=== PATIENT | female | born 1945 | race Caucasian/White ===

== ENCOUNTER → 2017-06-30 | Outpatient (CLI) | payer OTHER, MEDICARE ==
[~2017-06-30] MED LIST: ASPI81TA28 PO; CIPR-255 PO; CYAN1LOZ PO; FSMD/70 PO; LEVO25TA PO; LEVO50TA PO; MULT-506 PO; PRAV20TA PO; PRLSR20 PO
[2017-06-30 12:29] LABS: HEMATOCRIT 42.6 % (37-47); HEMOGLOBIN 13.9 g/dL (12.0-16.0); MEAN CELL VOLUME 90.6 fL (80-100); MEAN CORPUSCULAR HEMOGLOBIN 29.6 pg (25-34); MEAN CORPUSCULAR HGB CONC 32.6 g/dl (32-36); MEAN PLATELET VOLUME 10.2 fL (7.4-10.4); PLATELET COUNT 247 K/uL (130-400); RED CELL DISTRIBUTION WIDTH CV 13.6 % (11.5-14.5); RED CELL DISTRIBUTION WIDTH SD 44.5 fL (36.4-46.3); WHITE BLOOD COUNT 7.37 K/uL (4.8-10.8)
[2017-06-30 13:02] LABS: BASO % 0.4 %; BASO ABS # 0.03 K/uL (0-0.2); EOS % 2.2 %; EOS ABS # 0.16 K/uL (0-0.5); IG# 0.02 K/uL (0.00-0.02); LYMPH % 53.5 %; LYMPH ABS # 3.94 K/uL (1.2-3.4); MONO % 8.8 %; MONO ABS # 0.65 K/uL (0.11-0.59); NEUT % 34.8 %; NEUT ABS # 2.57 K/uL (1.4-6.5)
[2017-06-30 13:12] LABS: ALBUMIN 3.7 gm/dl (3.4-5.0); ALT/SGPT 31 U/L (12-78); AST/SGOT 21 U/L (15-37); BLOOD UREA NITROGEN 25 mg/dl (7-18); CALCIUM 8.4 mg/dl (8.5-10.1); CARBON DIOXIDE 29 mmol/L (21-32); CREATININE 0.89 mg/dl (0.60-1.20); GLUCOSE 91 mg/dl (70-99); SODIUM 140 mmol/L (136-145)
[2017-06-30 13:22] LABS: ALKALINE PHOSPHATASE 49 U/L (45-117); CHOLESTEROL 238 mg/dl (0-200); LDL CHOLESTEROL CALCULATED 152 mg/dl; TOTAL PROTEIN 7.4 gm/dl (6.4-8.2)
== END | disposition home or self-care (01) ==
LOC: C.LABMFLN 08:55
PROVIDERS: ATTEND Family Medicine
DX: I10 Essential (primary) hypertension (principal); M81.0 Age-related osteoporosis without current pathological fracture; K21.9 Gastro-esophageal reflux disease without esophagitis; E03.8 Other specified hypothyroidism

== ENCOUNTER → 2017-09-23 | Outpatient (CLI) | payer OTHER, MEDICARE ==
[2017-09-23 13:15] LABS: ALBUMIN 3.9 gm/dl (3.4-5.0); ALKALINE PHOSPHATASE 39 U/L (45-117); ALT/SGPT 40 U/L (12-78); AST/SGOT 30 U/L (15-37); BLOOD UREA NITROGEN 22 mg/dl (7-18); CALCIUM 8.9 mg/dl (8.5-10.1); CARBON DIOXIDE 29 mmol/L (21-32); CHOLESTEROL 215 mg/dl (0-200); CREATININE 1.13 mg/dl (0.60-1.20); GLUCOSE 85 mg/dl (70-99); LDL CHOLESTEROL CALCULATED 130 mg/dl; POTASSIUM 4.1 mmol/L (3.5-5.1); SODIUM 140 mmol/L (136-145); TOTAL PROTEIN 7.6 gm/dl (6.4-8.2)
== END | disposition home or self-care (01) ==
LOC: C.LABMFLN 09:00
PROVIDERS: ATTEND Family Medicine
DX: E78.5 Hyperlipidemia, unspecified (principal); E55.9 Vitamin D deficiency, unspecified

== ENCOUNTER 2022-07-21 16:49 | Observation (INO) ==
[2022-07-21] MEDS ORDERED: METOPROLOL TARTRATE 1 MG/ML VIAL IV STA ×2 (17:09→18:14)
[2022-07-21 17:51] LABS: Basophils # (auto) 0.04 K/uL (0-0.2); Basophils % (auto) 0.4 %; Eosinophils % (auto) 1.8 %; Hematocrit (blood only) 45.2 % (37.0-47.0); Hemoglobin 15.2 g/dl (12.0-16.0); Immature Granulocytes # (auto) 0.02 K/uL (0.01-0.20); Immature Granulocytes % (auto) 0.2 %; Lymphocytes # (auto) 4.82 K/uL (1.2-3.4); Lymphocytes % (auto) 44.4 %; Mean Corpuscular Hemoglobin 30.4 pg (25.0-34.0); Mean Corpuscular Hgb Conc 33.6 g/dL (32.0-36.0); Mean Corpuscular Volume 90.4 fL (80.0-100.0); Mean Platelet Volume 10.8 fL (9.4-12.4); Monocytes # (auto) 1.14 K/uL (0.11-0.59); Monocytes % (auto) 10.5 %; Neutrophils # (auto) 4.63 K/uL (1.40-6.50); Neutrophils % (auto) 42.7 %; Platelet Count 259 K/uL (130-400); RDW Coefficient of Variation 13.5 % (11.5-14.5); RDW Standard Deviation 45.2 fL (36.4-46.3); White Blood Count 10.85 K/ul (4.8-10.8)
[2022-07-21 18:03] LABS: Albumin Globulin Ratio 1.4 (0.9-2); Albumin Level 4.3 gm/dl (3.4-5.0); BUN Creatinine Ratio 28.6 (10-20); Bilirubin,Total 0.5 mg/dl (0.2-1.0); Calcium 9.5 mg/dl (8.6-10.3); Est GFR (African American) 77.7 ml/min; Globulin 3.1 gm/dl (2.5-4.0); Magnesium 2.1 mg/dl (1.7-2.4); Potassium 4.1 mmol/L (3.5-5.1); Total Protein 7.4 gm/dl (6.0-8.3)
[2022-07-21 18:06] LABS: Troponin I High Sensitivity 12.8 pg/ml (0-14)
[2022-07-21 18:08] LABS: Appearance Urine Clear (Clear); Bacteria Urine Automated Negative (Negative); Bilirubin Urine Negative (Negative); Blood Urine 1+ (Negative); Cast Urine Automated 0 /lpf (0-5); Color Urine Yellow; Epithelial Cell Urine Auto 0-5 /lpf (0-5); Glucose Urine UA Negative (Negative); Ketones Urine Negative (Negative); Leukocyte Esterase Urine Negative (Negative); Nitrite Urine Negative (Negative); Protein Urine Negative (Negative); RBC Urine Automated 0-4 /hpf (0-4); Specific Gravity Urine 1.017 (1.000-1.030); Urobilinogen Urine Negative (Negative); pH Urine 5.5 (4.5-7.5)
[2022-07-21 18:10] LABS: INR 0.9 (0.9-1.1); Partial Thromboplastin Time 27.1 Seconds (21.0-31.0); Prothrombin Time 10.2 Seconds (9.0-12.0)
[2022-07-21 18:14] LABS: Thyroid Stimulating Hormone 0.208 uIu/ml (0.300-4.500)
[2022-07-21] MEDS ORDERED: dilTIAZem HCl 5 MG/ML 5 ML VIAL IV STA (18:30)
--- NOTE | 2022-07-21 18:31 | XRay Report ---
SINGLE VIEW CHEST CLINICAL HISTORY: Dysrhythmia FINDINGS: An AP, portable, upright chest radiograph is obtained. No prior studies are available for c omparison at the time of dictation. The cardiomediastinal silhouette is unremarkable. The lungs and p leural spaces are clear. No pneumothorax is seen. The skeletal structures are osteopenic. The bony th orax is grossly intact. IMPRESSION: No active disease in the chest. ACT 112: Negative or not required by law. Electronically signed by: Usman Brock M.D. 07/21/2022 6:29 PM
[2022-07-21 18:47] LABS: T4 Free Thyroxine 1.2 ng/dl (0.61-1.60)
--- NOTE | 2022-07-21 21:39 | History & Physical Report ---
Date of Service July 21, 2022 Assessment & Plan (1) Atrial fibrillation: Plan: Atrial Fibrillation with RVR - Converted to NSR with metoprolol/diltiazem and has remained with rates in the 80s - Will monitor of telemetry - TSH low, hyperthyroidism could be a contributing factor - Trop= 12, repeat pending - Echo from 05/2022 with mild concentric LVH, EF= 60-65% - Consult cardiology - Continue Eliquis. She does note Eliquis is very expensive for her. Hypothyroidism - TSH= 0.208 - Will decrease levothyroxine from 75mcg to 50mcg - Will need repeat TSH in 6 weeks HLD - continue rosuvastatin GERD - continue omeprazole (2) Hypothyroidism: (3) Hypercholesterolemia: (4) HTN (hypertension): (5) GERD without esophagitis: History of Present Illness Primary Care Provider: Eduardo Flores DO 77 year old female with a past medical history of atrial fibrillation, anxiety, hypothyroidism, HLD, HTN, GERD presents with palpations. Was admitted at [facility] from 05/24-05/25/2022 with COVID-19 and was having palpitations found to be in a fib with RVR. During that hospitalization she was placed on an amiodarone drip and converted back to NSR. She was started on Eliquis and amiodarone. She did not start taking the amiodarone as she was concerned about the side effects. Is scheduled to see Dr. Merida on 07/31/2022. This afternoon she developed palpitations, states it felt similar to the last time she as in a fib. Denies chest pain, dyspnea, nausea. In the ED was found to be in Afib with RVR. Was given 5mg Metoprolol IVx2 and then Diltiazem. Converted to NSR with a rate in the 80s. ED workup signficant for TSH= 0.2. Trop=12. CXR without acute process. Allergies Allergy/AdvReac Type Severity Reaction Status Date / Time atorvastatin [From Lipitor] Allergy Unknown Verified 07/21/22 19:48 Home Medications Medication Instructions Recorded Confirmed Type cholecalciferol (vitamin D3) 125 5,000 unit PO QAM 03/04/18 07/21/22 History mcg (5,000 unit) tablet (Vitamin D3) lactobacillus combination no.4 3 3,000 mmu cells PO QAM 03/04/18 07/21/22 History billion cell capsule (Probiotic) multivitamin 1 tab PO QAM 03/04/18 07/21/22 History levothyroxine 75 mcg tablet 75 mcg PO QAM #90 tabs 06/25/22 07/21/22 Rx rosuvastatin 10 mg tablet 10 mg PO QPM #90 tabs 06/25/22 07/21/22 Rx apixaban 5 mg tablet 5 mg PO BID #60 tabs 06/29/22 07/21/22 Rx omeprazole 40 mg capsule,delayed 40 mg PO DAILYBB 07/21/22 07/21/22 History release triamcinolone acetonide 0.1 % 1 applic topical BID PRN as desired 07/21/22 07/21/22 History topical cream Past Med/Surg History Medical History Cervical pain (neck) Cough Dermatitis Diverticular disease Elevated liver enzymes Encounter for screening mammogram for breast cancer GERD without esophagitis GI bleed (12/05/13) Hearing deficit HTN (hypertension) Hyperlipidemia Hypothyroidism LBBB (left bundle branch block) Lower GI bleed Lymphadenopathy, cervical Menopause Osteoporosis Situational anxiety Vitamin D deficiency Surgical History H/O excision of mass (04/07/21) History of appendectomy History of cataract surgery History of section History of colonoscopy History of esophagogastroduodenoscopy (EGD) Family History Father Family history of diabetes mellitus Prostate cancer Myocardial infarction Brother Family history of diabetes mellitus Family/Other Hx of CABG Denies family history of Ovarian cancer Breast cancer Colorectal cancer Social History (Updated 04/10/22 @ 08:21 by ELIZABETH Torres) Smoking Status: Never smoker 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 How many Children do You have: 2 Feels Safe at Home: Yes Childhood Exposure to Second-Hand Smoke: Yes (Co-workers) Diet: regular Diet Comment: Regular diet caffeine: Yes (coffee,tea) during the past year weight has: remained stable Dental Care, Regularly: Yes Physical Activity Frequency: Daily Seatbelt Use: always Sunscreen Use: Yes Do you think of yourself as: straight/heterosexual Assistive Devices: Glasses and Hearing Aid - Bilateral Review of Systems 2 Review of Systems: As per above Physical Exam Physical Exam: Constitutional: well-appearing, no acute distress HEENT: NCAT, no conjunctival injection CV: regular rhythm, no murmur appreciated, extremities well-perfused, no LE edema Resp: CTABL, no wheezes/rales/rhonchi appreciated, no increased work of breathing GI: soft, nondistended, nontender MSK: no gross deformities appreciated Skin: warm, dry, no rash appreciated Neuro: alert, oriented, no focal neurologic deficit appreciated Results & Data Results & Data Vital Signs (Past 12 Hours) Vital Signs Temp Pulse Pulse Resp BP BP Pulse Ox 07/21/22 20:30 86 23 128/81 94 07/21/22 20:15 87 22 133/87 96 07/21/22 20:00 113 H 20 117/77 95 07/21/22 19:46 94 H 21 104/81 96 07/21/22 19:30 104 H 24 113/66 94 07/21/22 19:15 99 H 19 112/82 94 07/21/22 19:00 85 28 H 106/66 93 07/21/22 18:45 87 21 103/65 93 07/21/22 18:40 94 H 29 H 97/59 L 95 07/21/22 18:30 127 H 21 117/80 94 07/21/22 18:22 119 H 21 98/79 L 94 07/21/22 18:15 145 H 23 111/88 94 07/21/22 18:00 109/92 95 07/21/22 17:45 98/78 L 94 07/21/22 17:30 121 H 18 118/98 95 07/21/22 17:18 149 H 23 120/90 96 07/21/22 17:03 154 H 27 H 153/107 H 96 07/21/22 17:02 133 H 07/21/22 17:17 133 H 25 H 120/90 96 07/21/22 17:02 144 H 29 H 153/107 H 96 07/21/22 16:53 36.7 C 159 H 20 164/91 H 97 O2 Del Method 07/21/22 20:30 07/21/22 20:15 07/21/22 20:00 07/21/22 19:46 07/21/22 19:30 07/21/22 19:15 07/21/22 19:00 07/21/22 18:45 07/21/22 18:40 Room Air 07/21/22 18:30 Room Air 07/21/22 18:22 Room Air 07/21/22 18:15 Room Air 07/21/22 18:00 Room Air 07/21/22 17:45 Room Air 07/21/22 17:30 Room Air 07/21/22 17:18 Room Air 07/21/22 17:03 Room Air 07/21/22 17:02 07/21/22 17:17 Room Air 07/21/22 17:02 Room Air 07/21/22 16:53 Room Air Resident Activity Tracking Resident Involvement: Resident Care Provided Care Provided: Adult Hospital Medicine
--- NOTE | 2022-07-22 00:30 | Emergency Department Note ---
Impression & Plan Atrial fibrillation with rapid ventricular response ED Provider Note CHIEF COMPLAINT: Tachycardia HISTORY OF PRESENT ILLNESS: This 77-year-old female patient with past medical history of atrial fibrillation on chronic anticoagulation, left bundle branch block, hypertension, hypercholesterolemia, hypothyroidism presents to the emergency department with complaints of heart racing and palpitations. Patient states she was recently admitted to the [facility] last month and discharged on amiodarone. The patient stopped taking the medication about 1 week ago as her pharmacist mentioned that this is a dangerous drug. She did not notify cardiology of stopping the drug. Patient does not take any other rate controlling medications. She denies any recent illnesses, chest pain, shortness of breath currently. Patient states she was previously followed by [facility] cardiology but has an appointment pending with Dr. Magn[facility] and would like to be seen by their service REVIEW OF SYSTEMS: A review of systems was performed with positives and pertinent negatives listed in the history of present illness. 10 systems were reviewed and are otherwise negative. ALLERGIES: see below MEDICATIONS: see below PMH: see below SOCIAL HISTORY: see below DDx:Premature contractions, electrolyte abnormality, cardiac dysrhythmia, thyroid dysfunction, gastrointestinal, as well as other pathologies. PHYSICAL EXAM: Vital signs reviewed. General: Well-appearing 77 yo female, in no significant distress. HEENT: No scleral icterus, PERRLA, neck supple. MMM. Cardiovascular: Tachycardic and irregular. Pulmonary: Clear to auscultation bilaterally, normal work of breathing. Abdomen: Soft, nontender, nondistended, positive bowel sounds. Musculoskeletal: Atraumatic, no peripheral edema. Neurologic: Patient awake alert and oriented x 3, speech is clear Skin: Warm, dry, no rash EMERGENCY DEPARTMENT COURSE/MDM: This patient was evaluated and appeared to be in no significant distress. IV access was obtained and laboratory work was drawn. The patient was placed on the hospital monitor and noted to be in a rapid atrial fibrillation. The patient was medicated with 5 mg of IV metoprolol x2. Patient remained in rapid atrial fibrillation was given 10 mg of IV Cardizem with good result. Patient remained in atrial fibrillation and shortly thereafter became tachycardic once again. Laboratory work is fairly reassuring. I did review my findings with the hospitalist service who agreed to evaluate the patient for admission and further management. Patient did cardiovert without any further intervention. As the patient is currently between cardiolo gy providers and no longer taking her antiarrhythmics and has no rate controlling medications at home, is felt to be in the patient's best interest to be evaluated for admission and further management. Patient agrees with the plan. MONITORING: An order for cardiac monitoring was placed and the patient is noted to be in a rapid atrial fibrillation at 133 beats per minute. RADIOLOGY: Chest x-ray to my interpretation reveals no evidence of focal lung consolidation or failure, otherwise defer to radiology EKG: To my interpretation reveals rapid atrial fibrillation at 145 bpm. Wide- complex. QTc is 479. No previous for comparison. DISPOSITION: Admission I have personally spent 45 minutes of critical care time in the direct management of this patient. This was a life/limb threatening event. This 45 minutes is in excess of all separately billable procedures. Past Med/Surg History Medical History Cervical pain (neck) Cough Dermatitis Diverticular disease Elevated liver enzymes Encounter for screening mammogram for breast cancer GERD without esophagitis GI bleed (12/05/13) Hearing deficit BL MENDOZA HTN (hypertension) Hyperlipidemia Hypothyroidism LBBB (left bundle branch block) Lower GI bleed Lymphadenopathy, cervical Menopause Osteoporosis Situational anxiety Vitamin D deficiency Surgical History H/O excision of mass (04/07/21) Atypical nevus of left lower leg: in office procedure 04/07/21 History of appendectomy History of cataract surgery BILATERAL History of section X 2 History of colonoscopy History of esophagogastroduodenoscopy (EGD) Family History Father Family history of diabetes mellitus Prostate cancer Myocardial infarction Brother Family history of diabetes mellitus Family/Other Hx of CABG Denies family history of Ovarian cancer Breast cancer Colorectal cancer Social History Smoking Status: Never smoker 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 How many Children do You have: 2 Feels Safe at Home: Yes Childhood Exposure to Second-Hand Smoke: Yes (Co-workers) Diet: regular Diet Comment: Regular diet caffeine: Yes (coffee,tea) during the past year weight has: remained stable Dental Care, Regularly: Yes Physical Activity Frequency: Daily Seatbelt Use: always Sunscreen Use: Yes Do you think of yourself as: straight/heterosexual Assistive Devices: Glasses and Hearing Aid - Bilateral Allergies Allergies Allergy/AdvReac Type Severity Reaction Status Date / Time atorvastatin [From Lipitor] Allergy Unknown Verified 07/21/22 19:48 Home Meds Home Medications Medication Instructions Recorded Confirmed cholecalciferol (vitamin D3) 125 5,000 unit PO QAM 03/04/18 07/21/22 mcg (5,000 unit) tablet (Vitamin D3) lactobacillus combination no.4 3 3,000 mmu cells PO QAM 03/04/18 07/21/22 billion cell capsule (Probiotic) multivitamin 1 tab PO QAM 03/04/18 07/21/22 omeprazole 40 mg capsule,delayed 40 mg PO DAILYBB 07/21/22 07/21/22 release triamcinolone acetonide 0.1 % 1 applic topical BID PRN as desired 07/21/22 07/21/22 topical cream Previous Rx's Medication Instructions Recorded levothyroxine 75 mcg tablet 75 mcg PO QAM #90 tabs 06/25/22 rosuvastatin 10 mg tablet 10 mg PO QPM #90 tabs 06/25/22 apixaban 5 mg tablet 5 mg PO BID #60 tabs 06/29/22 Results & Data (ED) Vital Signs Vital Signs - 24 hr 07/21/22 16:53 07/21/22 17:02 07/21/22 17:17 Temperature 36.7 C Temperature Source Temporal Artery Scan Pulse Rate 159 H Pulse Rate [Left Apical] 144 H 133 H Pulse Rate from SpO2 Sensor Pulse Rhythm Regular Pulse Strength Normal Respiratory Rate 20 29 H 25 H Respiratory Effort / Characteristics Non-Labored Spontaneous Respiratory Depth Normal Respiratory Pattern Regular Blood Pressure 164/91 H Blood Pressure [Right Arm] 153/107 H 120/90 Blood Pressure Mean 115 Blood Pressure Mean [Right Arm] 122 100 Blood Pressure Position Sitting Pulse Oximetry 97 96 96 Oxygen Delivery Method Room Air Room Air Room Air Sepsis Recent Fever Within 48 Hours No Sepsis New/Unexplained Change in Mental Status No Sepsis Action Taken by Nursing No Action Required 07/21/22 17:02 07/21/22 17:03 07/21/22 17:18 Temperature Temperature Source Pulse Rate 133 H 154 H 149 H Pulse Rate [Left Apical] Pulse Rate from SpO2 Sensor Pulse Rhythm Pulse Strength Respiratory Rate 27 H 23 Respiratory Effort / Characteristics Respiratory Depth Respiratory Pattern Blood Pressure 153/107 H 120/90 Blood Pressure [Right Arm] Blood Pressure Mean 122 100 Blood Pressure Mean [Right Arm] Blood Pressure Position Pulse Oximetry 96 96 Oxygen Delivery Method Room Air Room Air Sepsis Recent Fever Within 48 Hours Sepsis New/Unexplained Change in Mental Status Sepsis Action Taken by Nursing 07/21/22 17:30 07/21/22 17:45 07/21/22 18:00 Temperature Temperature Source Pulse Rate 121 H Pulse Rate [Left Apical] Pulse Rate from SpO2 Sensor 101 H 134 H Pulse Rhythm Pulse Strength Respiratory Rate 18 Respiratory Effort / Characteristics Respiratory Depth Respiratory Pattern Blood Pressure 118/98 98/78 L 109/92 Blood Pressure [Right Arm] Blood Pressure Mean 104 84 97 Blood Pressure Mean [Right Arm] Blood Pressure Position Pulse Oximetry 95 94 95 Oxygen Delivery Method Room Air Room Air Room Air Sepsis Recent Fever Within 48 Hours Sepsis New/Unexplained Change in Mental Status Sepsis Action Taken by Nursing 07/21/22 18:15 07/21/22 18:22 07/21/22 18:30 Temperature Temperature Source Pulse Rate 145 H 119 H 127 H Pulse Rate [Left Apical] Pulse Rate from SpO2 Sensor Pulse Rhythm Pulse Strength Respiratory Rate 23 21 21 Respiratory Effort / Characteristics Respiratory Depth Respiratory Pattern Blood Pressure 111/88 98/79 L 117/80 Blood Pressure [Right Arm] Blood Pressure Mean 95 85 92 Blood Pressure Mean [Right Arm] Blood Pressure Position Pulse Oximetry 94 94 94 Oxygen Delivery Method Room Air Room Air Room Air Sepsis Recent Fever Within 48 Hours Sepsis New/Unexplained Change in Mental Status Sepsis Action Taken by Nursing 07/21/22 18:40 07/21/22 18:45 07/21/22 19:00 Temperature Temperature Source Pulse Rate 94 H 87 85 Pulse Rate [Left Apical] Pulse Rate from SpO2 Sensor 84 82 Pulse Rhythm Pulse Strength Respiratory Rate 29 H 21 28 H Respiratory Effort / Characteristics Respiratory Depth Respiratory Pattern Blood Pressure 97/59 L 103/65 106/66 Blood Pressure [Right Arm] Blood Pressure Mean 71 77 79 Blood Pressure Mean [Right Arm] Blood Pressure Position Pulse Oximetry 95 93 93 Oxygen Delivery Method Room Air Sepsis Recent Fever Within 48 Hours Sepsis New/Unexplained Change in Mental Status Sepsis Action Taken by Nursing 07/21/22 19:15 07/21/22 19:30 07/21/22 19:46 Temperature Temperature Source Pulse Rate 99 H 104 H 94 H Pulse Rate [Left Apical] Pulse Rate from SpO2 Sensor 84 97 H 88 Pulse Rhythm Pulse Strength Respiratory Rate 19 24 21 Respiratory Effort / Characteristics Respiratory Depth Respiratory Pattern Blood Pressure 112/82 113/66 104/81 Blood Pressure [Right Arm] Blood Pressure Mean 92 81 88 Blood Pressure Mean [Right Arm] Blood Pressure Position Pulse Oximetry 94 94 96 Oxygen Delivery Method Sepsis Recent Fever Within 48 Hours Sepsis New/Unexplained Change in Mental Status Sepsis Action Taken by Nursing 07/21/22 20:00 07/21/22 20:15 07/21/22 20:30 Temperature Temperature Source Pulse Rate 113 H 87 86 Pulse Rate [Left Apical] Pulse Rate from SpO2 Sensor 99 H 85 85 Pulse Rhythm Pulse Strength Respiratory Rate 20 22 23 Respiratory Effort / Characteristics Respiratory Depth Respiratory Pattern Blood Pressure 117/77 133/87 128/81 Blood Pressure [Right Arm] Blood Pressure Mean 90 102 96 Blood Pressure Mean [Right Arm] Blood Pressure Position Pulse Oximetry 95 96 94 Oxygen Delivery Method Sepsis Recent Fever Within 48 Hours Sepsis New/Unexplained Change in Mental Status Sepsis Action Taken by Nursing 07/21/22 21:23 07/21/22 20:45 07/21/22 21:00 Temperature Temperature Source Pulse Rate 84 84 84 Pulse Rate [Left Apical] Pulse Rate from SpO2 Sensor 84 85 Pulse Rhythm Pulse Strength Respiratory Rate 17 24 Respiratory Effort / Characteristics Respiratory Depth Respiratory Pattern Blood Pressure 118/70 141/82 H Blood Pressure [Right Arm] Blood Pressure Mean 86 101 Blood Pressure Mean [Right Arm] Blood Pressure Position Pulse Oximetry 95 94 Oxygen Delivery Method Sepsis Recent Fever Within 48 Hours Sepsis New/Unexplained Change in Mental Status Sepsis Action Taken by Nursing 07/21/22 21:20 Temperature Temperature Source Pulse Rate 84 Pulse Rate [Left Apical] Pulse Rate from SpO2 Sensor 81 Pulse Rhythm Pulse Strength Respiratory Rate 16 Respiratory Effort / Characteristics Respiratory Depth Respiratory Pattern Blood Pressure 138/82 Blood Pressure [Right Arm] Blood Pressure Mean 100 Blood Pressure Mean [Right Arm] Blood Pressure Position Pulse Oximetry 95 Oxygen Delivery Method Sepsis Recent Fever Within 48 Hours Sepsis New/Unexplained Change in Mental Status Sepsis Action Taken by Prison Medications Current Medication List: was personally reviewed by me Laboratory Data Attestation: I reviewed the patient's lab results. 07/21/22 17:04 07/21/22 17:04 Lab Results 07/21/22 07/21/22 07/21/22 Range/Units 17:04 17:04 17:04 WBC 10.85 H (4.8-10.8) K/ul RBC 5.00 (4.20-5.40) M/uL Hgb 15.2 (12.0-16.0) g/dl Hct 45.2 (37.0-47.0) % MCV 90.4 (80.0-100.0) fL MCH 30.4 (25.0-34.0) pg MCHC 33.6 (32.0-36.0) g/dL RDW Std Deviation 45.2 (36.4-46.3) fL RDW Coeff of [place] 13.5 (11.5-14.5) % Plt Count 259 (130-400) K/uL MPV 10.8 (9.4-12.4) fL Immature Gran % (Auto) 0.2 % Neut % (Auto) 42.7 % Lymph % (Auto) 44.4 % [place] % (Auto) 10.5 % Eos % (Auto) 1.8 % Baso % (Auto) 0.4 % Neut # (Auto) 4.63 (1.40-6.50) K/uL Lymph # (Auto) 4.82 H (1.2-3.4) K/uL [place] # (Auto) 1.14 H (0.11-0.59) K/uL Eos # (Auto) 0.20 (0-0.50) K/uL Baso # (Auto) 0.04 (0-0.2) K/uL Immature Gran # (Auto) 0.02 (0.01-0.20) K/uL PT 10.2 (9.0-12.0) Seconds INR 0.9 (0.9-1.1) APTT 27.1 (21.0-31.0) Seconds PTT Ratio 1.0 Sodium 141 (136-145) mmol/L Potassium 4.1 (3.5-5.1) mmol/L Chloride 108 H (98-107) mmol/L Carbon Dioxide 25 (21-32) mmol/L Anion Gap 8 (3-11) BUN 24 H (6-23) mg/dl Creatinine 0.84 (0.6-1.2) mg/dl Est Cr Clr Drug Dosing 53.0 ml/min Est GFR ( Amer) 77.7 ml/min Est GFR (Non-Af Amer) 67.0 ml/min BUN/Creatinine Ratio 28.6 H (10-20) Glucose 117 H (70-99(Fasting)) mg/dl Calcium 9.5 (8.6-10.3) mg/dl Magnesium 2.1 (1.7-2.4) mg/dl Total Bilirubin 0.5 (0.2-1.0) mg/dl AST 44 H (13-39) U/L ALT 54 H (7-52) U/L Alkaline Phosphatase 61 (34-104) U/L Troponin I High Sens 12.8 (0-14) pg/ml Total Protein 7.4 (6.0-8.3) gm/dl Albumin 4.3 (3.4-5.0) gm/dl Globulin 3.1 (2.5-4.0) gm/dl Albumin/Globulin Ratio 1.4 (0.9-2) TSH (0.300-4.500) uIu/ml Free T4 (0.61-1.60) ng/dl Urine Color Urine Appearance (Clear) Urine pH (4.5-7.5) Ur Specific [place] (1.000-1.030) Urine Protein (Negative) Urine Glucose (UA) (Negative) Urine Ketones (Negative) Urine Blood (Negative) Urine Nitrite (Negative) Urine Bilirubin (Negative) Urine Urobilinogen (Negative) Ur Leukocyte Esterase (Negative) Urine WBC (Auto) (0-5) /hpf Urine RBC (Auto) (0-4) /hpf U Hyaline Cast (Auto) (0-5) /lpf U Epithel Cells (Auto) (0-5) /lpf Urine Bacteria (Auto) (Negative) SARS-CoV-2, RNA, NAAT (NEGATIVE) 07/21/22 07/21/22 07/21/22 Range/Units 17:04 17:21 17:25 WBC (4.8-10.8) K/ul RBC (4.20-5.40) M/uL Hgb (12.0-16.0) g/dl Hct (37.0-47.0) % MCV (80.0-100.0) fL MCH (25.0-34.0) pg MCHC (32.0-36.0) g/dL RDW Std Deviation (36.4-46.3) fL RDW Coeff of [place] (11.5-14.5) % Plt Count (130-400) K/uL MPV (9.4-12.4) fL Immature Gran % (Auto) % Neut % (Auto) % Lymph % (Auto) % [place] % (Auto) % Eos % (Auto) % Baso % (Auto) % Neut # (Auto) (1.40-6.50) K/uL Lymph # (Auto) (1.2-3.4) K/uL [place] # (Auto) (0.11-0.59) K/uL Eos # (Auto) (0-0.50) K/uL Baso # (Auto) (0-0.2) K/uL Immature Gran # (Auto) (0.01-0.20) K/uL PT (9.0-12.0) Seconds INR (0.9-1.1) APTT (21.0-31.0) Seconds PTT Ratio Sodium (136-145) mmol/L Potassium (3.5-5.1) mmol/L Chloride (98-107) mmol/L Carbon Dioxide (21-32) mmol/L Anion Gap (3-11) BUN (6-23) mg/dl Creatinine (0.6-1.2) mg/dl Est Cr Clr Drug Dosing ml/min Est GFR ( Amer) ml/min Est GFR (Non-Af Amer) ml/min BUN/Creatinine Ratio (10-20) Glucose (70-99(Fasting)) mg/dl Calcium (8.6-10.3) mg/dl Magnesium (1.7-2.4) mg/dl Total Bilirubin (0.2-1.0) mg/dl AST (13-39) U/L ALT (7-52) U/L Alkaline Phosphatase (34-104) U/L Troponin I High Sens (0-14) pg/ml Total Protein (6.0-8.3) gm/dl Albumin (3.4-5.0) gm/dl Globulin (2.5-4.0) gm/dl Albumin/Globulin Ratio (0.9-2) TSH 0.208 L (0.300-4.500) uIu/ml Free T4 1.20 (0.61-1.60) ng/dl Urine Color Yellow Urine Appearance Clear (Clear) Urine pH 5.5 (4.5-7.5) Ur Specific [place] 1.017 (1.000-1.030) Urine Protein Negative (Negative) Urine Glucose (UA) Negative (Negative) Urine Ketones Negative (Negative) Urine Blood 1+ H (Negative) Urine Nitrite Negative (Negative) Urine Bilirubin Negative (Negative) Urine Urobilinogen Negative (Negative) Ur Leukocyte Esterase Negative (Negative) Urine WBC (Auto) 1-5 (0-5) /hpf Urine RBC (Auto) 0-4 (0-4) /hpf U Hyaline Cast (Auto) 0 (0-5) /lpf U Epithel Cells (Auto) 0-5 (0-5) /lpf Urine Bacteria (Auto) Negative (Negative) SARS-CoV-2, RNA, NAAT NEGATIVE (NEGATIVE) Administered Medications Discontinued Medications Diltiazem HCl (Diltiazem Hcl 5 Mg/Ml 5 Ml Vial) 10 mg IV NOW STA Stop: 07/21/22 18:31 Last Admin: 07/21/22 18:35 Dose: 10 mg Documented By: [facility] Co-signed By: SARITHA Metoprolol Tartrate (Metoprolol Tartrate 1 Mg/Ml Vial) 5 mg IV NOW STA Stop: 07/21/22 17:10 Last Admin: 07/21/22 17:13 Dose: 5 mg Documented By: [facility] Metoprolol Tartrate (Metoprolol Tartrate 1 Mg/Ml Vial) 5 mg IV NOW STA Stop: 07/21/22 18:15 Last Admin: 07/21/22 18:20 Dose: 5 mg Documented By: [facility] Imaging Data Radiologist's Impression: Chest X-Ray 07/21/22 17:18 SINGLE VIEW CHEST CLINICAL HISTORY: Dysrhythmia FINDINGS: An AP, portable, upright chest radiograph is obtained. No prior studies are available for comparison at the time of dictation. The cardiomediastinal silhouette is unremarkable. The lungs and pleural spaces are clear. No pneumothorax is seen. The skeletal structures are osteopenic. The bony thorax is grossly intact. IMPRESSION: No active disease in the chest. ACT 112: Negative or not required by law. Electronically signed by: Usman Brock M.D. 07/21/2022 6:29 PM Discharge Plan Visit Data Chief Complaint: Tachycardia Stated Complaint: RAPID HEART BEAT ED Provider: Eliana Nagel Discharge Problem: Atrial fibrillation with rapid ventricular response Forms Stand Alone [facility]: [facility] Prescriptions Prescriptions: No Action levothyroxine 75 mcg tablet 75 mcg PO QAM Qty: 90 0RF rosuvastatin 10 mg tablet 10 mg PO QPM Qty: 90 3RF apixaban 5 mg tablet 5 mg PO BID Qty: 60 0RF multivitamin Tablet 1 tab PO QAM cholecalciferol (vitamin D3) [Vitamin D3] 5,000 unit Tablet 5,000 unit PO QAM Probiotic 3 billion cell Capsule 3,000 mmu cells PO QAM triamcinolone acetonide 0.1 % cream 1 applic topical BID PRN (Reason: as desired) omeprazole 40 mg capsule,delayed release(DR/EC) 40 mg PO DAILYBB Referrals Referrals: Eduardo Flores DO [Primary Care Provider] -
[2022-07-22] MEDS: APIXABAN 5 MG TABLET PO SCH ×2 (01:40→09:40)
[2022-07-22] MEDS ORDERED: LEVOTHYROXINE SODIUM 50 MCG TABLET PO SCH (06:30)
[2022-07-22] MEDS ORDERED: PANTOprazole 40 MG TAB PO SCH (06:30)
--- NOTE | 2022-07-22 07:58 | Hospitalist Progress Note ---
Date of Service July 22, 2022 Assessment & Plan (1) Atrial fibrillation: Plan: Atrial Fibrillation with RVR - Converted to NSR with metoprolol/diltiazem and has remained with rates in the 80s . Had been at [facility]/ [facility] recently, started amio/eliquis -> pt never started amio due to worry about side effects - Will monitor of telemetry - TSH low, hyperthyroidism could be a contributing factor - Trop= 12, repeat pending - Echo from 05/2022 with mild concentric LVH, EF= 60-65% - Consult cardiology - Continue Eliquis. She does note Eliquis is very expensive for her. Hypothyroidism - TSH= 0.208 - Will decrease levothyroxine from 75mcg to 50mcg - Will need repeat TSH in 6 weeks HLD - continue rosuvastatin GERD - continue omeprazole (2) Hypothyroidism: (3) Hypercholesterolemia: (4) HTN (hypertension): (5) GERD without esophagitis: Admission and Anticipated Discharge Date Admission Date: July 21, 2022 Results & Data Results & Data Vital Signs (Past 12 Hours) Vital Signs Temp Pulse Pulse Resp BP BP Pulse Ox 07/22/22 07:13 36.8 C 78 16 129/81 95 07/22/22 07:00 80 07/22/22 04:00 36.5 C 77 18 127/79 94 07/22/22 00:59 36.7 C 91 H 18 167/89 H 95 07/22/22 01:18 83 07/22/22 01:15 36.7 C 91 H 18 167/89 H 95 07/22/22 00:30 81 28 H 94 07/22/22 00:15 85 17 154/91 H 95 07/22/22 00:00 82 19 157/97 H 96 07/21/22 23:30 82 20 96 07/21/22 23:00 84 19 97 07/21/22 22:30 81 20 97 07/21/22 22:00 85 13 95 07/21/22 21:30 84 19 118/76 93 07/21/22 21:20 84 16 138/82 95 07/21/22 21:00 84 24 141/82 H 94 07/21/22 20:45 84 17 118/70 95 07/21/22 21:23 84 07/21/22 20:30 86 23 128/81 94 07/21/22 20:15 87 22 133/87 96 07/21/22 20:00 113 H 20 117/77 95 O2 Del Method 07/22/22 07:13 Room Air 07/22/22 07:00 07/22/22 04:00 Room Air 07/22/22 00:59 Room Air 07/22/22 01:18 07/22/22 01:15 Room Air 07/22/22 00:30 07/22/22 00:15 07/22/22 00:00 07/21/22 23:30 07/21/22 23:00 07/21/22 22:30 07/21/22 22:00 07/21/22 21:30 07/21/22 21:20 07/21/22 21:00 07/21/22 20:45 07/21/22 21:23 07/21/22 20:30 07/21/22 20:15 07/21/22 20:00 PG Care Time/CCT Total # of Minutes Spent Total Time Spent with Patient: Total time spent is greater than 50% in coordination of care (as documented) at patient's floor/unit and/or counseling patient: Coding Diagnoses Atrial fibrillation I48.91 Hypothyroidism E03.9 Hypercholesterolemia E78.00 HTN (hypertension) I10 GERD without esophagitis K21.9
--- NOTE | 2022-07-22 08:23 | Electrocardiogram Report ---
Test Reason : Blood Pressure : / mmHG Vent. Rate : 145 BPM Atrial Rate : 156 BPM P-R Int : 224 ms QRS Dur : 118 ms QT Int : 320 ms P-R-T Axes : 110 -22 131 degrees QTc Int : 497 ms Sinus tachycardia with 1st degree A-V block with multiple atrial runs Left bundle branch block Abnormal ECG When compared with ECG of 05-DEC-2013 01:34, Left bundle branch block now present atiral runs now present Confirmed by Willis Mckeon ([id number]) on 07/22/2022 8:23:08 AM Referred By: REFERRED SELF Confirmed By:Willis Mckeon
--- NOTE | 2022-07-22 08:25 | Electrocardiogram Report ---
Test Reason : Blood Pressure : / mmHG Vent. Rate : 081 BPM Atrial Rate : 081 BPM P-R Int : 180 ms QRS Dur : 066 ms QT Int : 366 ms P-R-T Axes : 040 003 048 degrees QTc Int : 425 ms Normal sinus rhythm Normal ECG When compared with ECG of 21-JUL-2022 17:02, AR interval has decreased Vent. rate has decreased BY 64 BPM Left bundle branch block no longer present Atrial runs no longer present Confirmed by Willis Mckeon ([id number]) on 07/22/2022 8:24:58 AM Referred By: REFERRED SELF Confirmed By:Willis Mckeon
[2022-07-22 08:37] LABS: Basophils # (auto) 0.04 K/uL (0-0.2); Basophils % (auto) 0.5 %; Eosinophils # (auto) 0.15 K/uL (0-0.50); Eosinophils % (auto) 1.8 %; Hematocrit (blood only) 40.9 % (37.0-47.0); Hemoglobin 13.6 g/dl (12.0-16.0); Immature Granulocytes # (auto) 0.01 K/uL (0.01-0.20); Immature Granulocytes % (auto) 0.1 %; Lymphocytes # (auto) 3.49 K/uL (1.2-3.4); Lymphocytes % (auto) 41.8 %; Mean Corpuscular Hemoglobin 30.4 pg (25.0-34.0); Mean Corpuscular Hgb Conc 33.3 g/dL (32.0-36.0); Mean Corpuscular Volume 91.5 fL (80.0-100.0); Mean Platelet Volume 10.6 fL (9.4-12.4); Monocytes # (auto) 0.88 K/uL (0.11-0.59); Monocytes % (auto) 10.5 %; Neutrophils # (auto) 3.78 K/uL (1.40-6.50); Neutrophils % (auto) 45.3 %; Platelet Count 218 K/uL (130-400); RDW Coefficient of Variation 13.7 % (11.5-14.5); RDW Standard Deviation 46.2 fL (36.4-46.3); Red Blood Count 4.47 M/uL (4.20-5.40); White Blood Count 8.35 K/ul (4.8-10.8)
[2022-07-22 08:51] LABS: Albumin Level 3.7 gm/dl (3.4-5.0); Bilirubin,Total 0.7 mg/dl (0.2-1.0); Potassium 4.1 mmol/L (3.5-5.1)
[2022-07-22 08:57] LABS: Albumin Globulin Ratio 1.4 (0.9-2); BUN Creatinine Ratio 32.8 (10-20); Creatinine Clr Calc Pharmacy 66.1 ml/min; Est GFR (African American) 98.3 ml/min; Est GFR (Non-African American) 84.8 ml/min; Globulin 2.6 gm/dl (2.5-4.0); Total Protein 6.3 gm/dl (6.0-8.3)
--- NOTE | 2022-07-22 11:53 | Cardiology Consultation ---
Date of Consultation July 22, 2022 Assessment & Plan (1) Paroxysmal A-fib: 77-year-old woman with new onset of atrial fibrillation last month, was to be managed with amiodarone and apixaban but due to concerns regarding medication she did not start amiodarone and was not on any negative chronotropic medicati on. As result, she developed recurrent atrial fibrillation. Since she had no evidence of myocardial ischemia or congestive heart failure and tolerated the atrial fibrillation well, she may not need to proceed directly to antiarrhythmic initiation but perhaps could be managed with a beta-beatriz alone. Recommend metoprolol succinate 50 mg daily, this could be titrated fur ther as an outpatient. Although she was initially worried about cost, after some discussion she felt that continuing apixaban would be appropriate. Given normal renal function and age less than 80 with weight greater than 60 kg would use full dose for chronic anticoagulation. She already has an appointment with Dr. Merida for further evaluation of her paroxysmal atrial fibrillation, follow-up with him as scheduled. From my standpoint, she is okay for discharge after receiving her initial dose of metoprolol. (2) LBBB (left bundle branch block): Left bundle branch block is intermittent and likely rate related. No specific therapy necessary. History of Present Illness Reason for Consultation: A fib with RVR Requesting Physician: Janis Negron DO Attending Physician: Anna Suarez MD History of Present Illness 77-year-old woman with history of intermittent left bundle branch block (? rate- related), suspected but unproven CAD (abnormal Cardiolite 2018), but no prior history of rhythm issues until May 2022 when she developed new onset atrial fibrillation in the context of testing positive for COVID-19. She converted spontaneously to sinus rhythm and was discharged on amiodarone and apixaban but due to concerns about potential side effects did not take the amiodarone. She was admitted here 07/21/2022 for symptoms of palpitations and found to have recurrent atrial fibrillation. Of note, she was feeling a decreased sense of exercise tolerance and subjective palpitations but denied any angina, unusual dyspnea, orthopnea, PND, or ankle edema. No presyncope or syncope. When she spoke with her pharmacist about amiodarone side effects, she became concerned and did not take the medication. Evaluation at [place] and here shows no evidence of myocardial ischemia or congestive heart failure. She spontaneously reverted to sinus rhythm overnight and has remained in sinus. At the time of my evaluation, she felt well and had no somatic complaints whatsoever. Allergies Allergy/AdvReac Type Severity Reaction Status Date / Time atorvastatin [From Lipitor] Allergy Unknown Verified 07/21/22 19:48 Home Medications Medication Instructions Recorded Confirmed Type cholecalciferol (vitamin D3) 125 5,000 unit PO QAM 03/04/18 07/21/22 History mcg (5,000 unit) tablet (Vitamin D3) lactobacillus combination no.4 3 3,000 mmu cells PO QAM 03/04/18 07/21/22 History billion cell capsule (Probiotic) multivitamin 1 tab PO QAM 03/04/18 07/21/22 History levothyroxine 75 mcg tablet 75 mcg PO QAM #90 tabs 06/25/22 07/21/22 Rx rosuvastatin 10 mg tablet 10 mg PO QPM #90 tabs 06/25/22 07/21/22 Rx apixaban 5 mg tablet 5 mg PO BID #60 tabs 06/29/22 07/21/22 Rx omeprazole 40 mg capsule,delayed 40 mg PO DAILYBB 07/21/22 07/21/22 History release triamcinolone acetonide 0.1 % 1 applic topical BID PRN as desired 07/21/22 07/21/22 History topical cream Patient History Medical History Cervical pain (neck) Cough Dermatitis Diverticular disease Elevated liver enzymes Encounter for screening mammogram for breast cancer GERD without esophagitis GI bleed (12/05/13) Hearing deficit BL MENDOZA HTN (hypertension) Hyperlipidemia Hypothyroidism LBBB (left bundle branch block) Lower GI bleed Lymphadenopathy, cervical Menopause Osteoporosis Situational anxiety Vitamin D deficiency Surgical History H/O excision of mass (04/07/21) Atypical nevus of left lower leg: in office procedure 04/07/21 History of appendectomy History of cataract surgery BILATERAL History of section X 2 History of colonoscopy History of esophagogastroduodenoscopy (EGD) Family History Father Family history of diabetes mellitus Prostate cancer Myocardial infarction Brother Family history of diabetes mellitus Family/Other Hx of CABG Denies family history of Ovarian cancer Breast cancer Colorectal cancer Social History Smoking Status: Never smoker 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 How many Children do You have: 2 Other Information That Helps Us Care for You: No Feels Safe at Home: Yes Safety Concerns: Feels Safe At This Time Childhood Exposure to Second-Hand Smoke: Yes (Co-workers) Diet: regular Diet Comment: Regular diet caffeine: Yes (coffee,tea) during the past year weight has: remained stable Dental Care, Regularly: Yes Physical Activity Frequency: Daily Seatbelt Use: always Sunscreen Use: Yes Do you think of yourself as: straight/heterosexual Assistive Devices: Glasses and Hearing Aid - Bilateral Review of Systems Review of Systems: Elderly white female appears comfortable. Normotensive. Pulse 76 bpm and regular. Skin: no ecchymoses or generalized lesions. HEENT: unremarkable. Neck: JVP at the clavicle at 90 degrees, no carotid bruits. Lungs: clear. Cardiac: regular rhythm, normal S1-2, no murmur. Abdomen: benign. Extremities: no edema, pulses intact. Neurologic: normal affect and conversation, nonfocal. Results & Data Laboratory Results Normal electrolytes, BUN 22, creatinine 0.67. Troponin values of 12.8 and 11.7. Diagnostic Findings ECG on admission shows sinus tachycardia with first-degree AV block and multiple short atrial runs, left bundle branch block. Compared with 2013 study, left bundle branch block and atrial runs were new. ECG subsequent to conversion to sinus showed normal sinus rhythm at 81 bpm and was completely unremarkable, left bundle branch block had resolved. Chest x-ray on admission was unremarkable. Echocardiogram from May 2022 showed normal LV systolic function with mild LVH and normal right ventricular systolic pressure, no significant valvular abnormalities. There is a notation in the [facility] records of an abnormal stress Cardiolite from 2018 suggesting possible anterior ischemia versus artifact. Ejection fraction was normal. PG Care Time/CCT Total # of Minutes Spent Total Time Spent with Patient: Total time spent is greater than 50% in coordination of care (as documented) at patient's floor/unit and/or counseling patient: Coding Level of Care Code 63978 IN/OBS CONSULT LVL 4,60M Diagnoses Paroxysmal A-fib I48.0 LBBB (left bundle branch block) I44.7
[2022-07-22] MEDS ORDERED: METOPROLOL SUCC 50MG EXT REL TAB PO STA (13:58)
--- NOTE | 2022-07-22 14:10 | Discharge Summary ---
Date of Service July 22, 2022 Admission HPI Per Admitting Provider 77 year old female with a past medical history of atrial fibrillation, anxiety, hypothyroidism, HLD, HTN, GERD presents with palpations. Was admitted at [facility] from 05/24-05/25/2022 with COVID-19 and was having palpitations found to be in a fib with RVR. During that hospitalization she was placed on an amiodarone drip and converted back to NSR. She was started on Eliquis and amiodarone. She did not start taking the amiodarone as she was concerned about the side effects. Is scheduled to see Dr. Merida on 07/31/2022. This afternoon she developed palpitations, states it felt similar to the last time she as in a fib. Denies chest pain, dyspnea, nausea. In the ED was found to be in Afib with RVR. Was given 5mg Metoprolol IVx2 and then Diltiazem. Converted to NSR with a rate in the 80s. ED workup signficant for TSH= 0.2. Trop=12. CXR without acute process. Admission Exam Per Admitting Provider Physical Exam: Constitutional: well-appearing, no acute distress HEENT: NCAT, no conjunctival injection CV: regular rhythm, no murmur appreciated, extremities well-perfused, no LE edema Resp: CTABL, no wheezes/rales/rhonchi appreciated, no increased work of breathing GI: soft, nondistended, nontender MSK: no gross deformities appreciated Skin: warm, dry, no rash appreciated Neuro: alert, oriented, no focal neurologic deficit appreciated Principal Diagnosis Atrial Fibrillation Discharge Exam General: WD/WN female sitting in bed, NAD HEENT: head normocephalic, atraumatic, trachea midline, no deviation Resp: CTA, no w/c, on room air CV: RRR, no significant m/r/g, no pitting edema GI: +BS, soft/NT : no kaur MSK/Neuro: no focal deficits Psych: AOx3, cooperative with exam Discharge Data Allergies Allergy/AdvReac Type Severity Reaction Status Date / Time atorvastatin [From Lipitor] Allergy Unknown Verified 07/21/22 19:48 Consultations 07/21/22 22:01 ED Decision to Admit Stat 07/22/22 01:13 Consult Cardiology Routine Ordered Studies Chest X-Ray 07/21/22 17:18 SINGLE VIEW CHEST CLINICAL HISTORY: Dysrhythmia FINDINGS: An AP, portable, upright chest radiograph is obtained. No prior studies are available for comparison at the time of dictation. The cardiomediastinal silhouette is unremarkable. The lungs and pleural spaces are clear. No pneumothorax is seen. The skeletal structures are osteopenic. The bony thorax is grossly intact. IMPRESSION: No active disease in the chest. ACT 112: Negative or not required by law. Electronically signed by: Usman Brock M.D. 07/21/2022 6:29 PM Hospital Course (1) Atrial fibrillation: Atrial Fibrillation with RVR Recent admission to [facility] for COVID/found to have afib and started amio/eliquis Per patient, risks w/ amio discussed w/ pharmacist when she went to pick this up and she had not started this. Presented with palpitations EKG w/ afib w/ rates to 145bpm, LBBB (?rate related per cards), abnormal Cardiolite in 2018 but no prior known history of rhythm issues Given metoprolol IV x 2 on admission w/ conversion to NSR TSH low -- decreased Synthroid to 50mcg daily and rec repeat TFT outpatient in 4-6 weeks/further adjustment. Could also have element hyperthyroidism from overtreatment contributing to paroxysmal afib. No further palpitations, remaining NSR on monitor Trop w/o significant elevation Cardiology consulted -- ECHO May 2022 w/ mild concentric LVH, EF normal 60-65% --> patient started metoprolol succinate 50mg daily and can dc after dose at present per cards. Already has appt scheduled with Dr Merida for further eval paroxysmal afib (2) Hypothyroidism: TSH LOW at 0.208 -- decreased synthyroid to 50mcg and recommend repeating TFT 4- 6 weeks outpatient/further adjustment if needed (3) Hypercholesterolemia: continued rosuvastatin (4) HTN (hypertension): BPs stable 138/83 metoprolol added as above, not on other anti-HTN at baseline (5) GERD without esophagitis: stable continued omeprazole/hospital equivalent while inpatient Total Time Total Time Spent Total Time Spent (In Minutes): 40 Discharge Plan Discharge Items Patient Disposition: Home - Self-Care Reason For Visit: ATRIAL FIBRILATION WITH RVR Discharge Diagnosis: Atrial Fibrillation Goals: You have been hospitalized for an acute medical problem. During your stay at [facility], we have made an effort to correct the problem that brought you to the hospital while keeping you as comfortable as possible. Medications were used to bring your condition under control and your discharge instructions will include directions for any medications you should take after leaving the hospital. Please make sure you see your Primary Care Provider as part of your follow up plan. Activity: Resume your previous activity Non-emergency contact: Primary Care Provider and Commissary Assistant Call non-emergency contact if: you have any medication questions and your symptoms worsen Follow-up/Referrals: Efrain Merida MD [Physician] - 07/31/22 1:00 pm Eduardo Flores DO [Primary Care Provider] - 07/29/22 9:00 am Diet: Heart Healthy Addtl Attending Provider Instructions: You have been hospitalized for palpitations and found to be in atrial fibrillation. Cardiology was consulted and you have been started on metoprolol 50mg daily in place of the amiodarone as previously recommended at [facility]. You were given IV formula of this on admission and converted to a normal rhtyhm. This medication will hopefully keep you in a regular rhythm. You should continue the eliquis twice daily as already taking. Your thyroid numbers were on the low side which sometimes can be from over treatment. Over treated thyroid can lead to atrial fibrillation and we have decreased your synthroid (levothyroxine) to 50mcg daily and you should have repeat thyroid levels as an outpatient in the next 4-6 weeks to ensure no further adjustments are required. Please follow up with Dr Merida from cardiology as already arranged. Follow up with primary care in the next 7-10 days to monitor your progress after discharge. Please return to the ER with any worsening palpitations, chest pain, shortness of breath or for any other symptoms concerning for you. It has been a pleasure being a part of the medical team providing for you while you have been in the hospital. Take care! Pending Studies at Discharge: No Stand-Alone Forms: My [facility], Smoking Cessation Medications and DC Order Prescriptions: New levothyroxine [Synthroid] 50 mcg Tablet 50 mcg PO DAILYBB Qty: 30 0RF metoprolol succinate 50 mg tablet extended release 24 hr 50 mg PO DAILY Qty: 30 0RF Continued rosuvastatin 10 mg tablet 10 mg PO QPM Qty: 90 3RF apixaban 5 mg tablet 5 mg PO BID Qty: 60 0RF multivitamin Tablet 1 tab PO QAM cholecalciferol (vitamin D3) [Vitamin D3] 5,000 unit Tablet 5,000 unit PO QAM Probiotic 3 billion cell Capsule 3,000 mmu cells PO QAM triamcinolone acetonide 0.1 % cream 1 applic topical BID PRN (Reason: as desired) omeprazole 40 mg capsule,delayed release(DR/EC) 40 mg PO DAILYBB Discontinued levothyroxine 75 mcg tablet 75 mcg PO QAM Qty: 90 0RF Discharge Orders: Discharge Order (Routine); Ordered 07/22/22 Ordered By: Giselle Harper Admission Data Admit Date/Time: 07/21/22 22:09 Attending Provider: Anna Suarez Admit Provider: Janis Negron Primary Care Provider: Eduardo Flores Other Providers: Christopher Hall ; Abram Amaro ; Willis Mckeon ; Andrez Vines ; Ricardo Baker ; Trey Pathak ; Godfrey Nuno Jr ; Henry Galvan ; Cecy Ponce ; Clementina Good ; Esau Yanes ; Efrain Merida ; Curtis George ; Gale Campoverde ; Kassi Gutierres ; Artemio Cantor ; Edwin Causey ; Ricardo Plata V. Supervising Physician Co-Signing Physician Notes PA Supervision Note: I personally saw and examined the patient. I verified all raymundo points and agree with JERROD Harpre with the following exceptions and/or additions: S-Pt chris ogden, converted to NSR, no complaints. Discussed care with Dr. Mckeon of Cardiology O- Vitals reviewed Gen: [AAOx3, NAD] HEENT: [anicteric sclerae, EOMI] CV: [RRR no mgr nl S1S2] Pulm: [CTAB no wcr] Ext: [no edema, 2+ DP pulses] A/P-77 yo female here with ANSELMO, now converted to NSR remain on toprol XL and Eliquis, keep f/u with Cardiology as outpt Coding Level of Care Code 43516 INP/OBS DISCH >30 MIN Diagnoses Atrial fibrillation I48.91 Hypothyroidism E03.9 Hypercholesterolemia E78.00 HTN (hypertension) I10 GERD without esophagitis K21.9
[2022-07-22] MEDS ORDERED: ROSUVASTATIN CALCIUM 10 MG TAB PO SCH (21:00)
== END 2022-07-22 17:20 | disposition home or self-care (01) ==
LOC: ED 16:49 → 2N 16:49 → SUATTDRO 22:09 → 2N 07-22 01:06